=== PATIENT | female | born 1985 | race African-American/Black ===

== ENCOUNTER 2019-09-13 09:18 | Inpatient (IN) ==
[2019-09-13] MEDS ORDERED: FAMOTIDINE 20 MG/2 ML VIAL IV ONE (10:29)
[2019-09-13] MEDS ORDERED: ceFAZolin 2,000 MG in PREMIX 1 EACH IV ONE (10:29)
[2019-09-13] MEDS ORDERED: CITRIC ACID/SODIUM CITRATE 30 ML UDCUP PO ONE (10:29)
[2019-09-13] MEDS ORDERED: LACTATED RINGERS 1,000 ML IV ONE (10:33)
[2019-09-13 11:06] LABS: Basophils % 0.2 % (0.0-0.8); Eosinophils % 0.3 % (0.00-10.9); Hematocrit 38.3 VOL% (35.7-47.0); Hemoglobin 12.7 GM/DL (12.0-16.0); Immature Granulocytes % 0.7 %; Immature Granulocytes Absolute 0.06 #; Lymphocytes # 2.1 10*3/uL (1.4-4.0); Lymphocytes % 23.8 % (21.3-54.2); Mean Corpuscular HGB Conc 33.2 GM/DL (32-36); Mean Corpuscular Volume 91.8 FL (87-102); Monocytes % 9.9 % (1.7-12.7); Neutrophils % 65.1 % (38.7-73.9); Platelet Count 119 T/CUMM (130-400); Red Blood Count 4.17 MC/CUMM (3.8-5.5); White Blood Count 8.8 T/CUMM (4-12)
[2019-09-13 11:24] LABS: Apearance,Urine CLEAR (Clear); Bilirubin,Urine Negative (Negative); Blood, Urine Negative (Negative); Glucose,Urine (UA) Negative (Negative); Ketones,Urine 5 mg/dL (Negative); Mucus,Urine Moderate /LPF (Occasional); Nitrite,Urine Negative (Negative); Protein,Urine Negative; RBC,Urine 3 /HPF (0-4); Squamous Epithelial Cell,Urine Occasional /HPF (0-10); Urine Color Yellow (Yellow); Urine Specific Gravity 1.016 (1.001-1.035); Urine Urobilinogen < 2.0 EU/DL (0.2-1.0); WBC,Urine 1 /HPF (0-6)
[2019-09-13] MEDS ORDERED: OXYTOCIN/LR 20 UNIT/1,000 ML BAG IV ONE ×3 (12:59→18:10)
[2019-09-13] MEDS ORDERED: BUPIVACAINE SPINAL 0.75% 2 ML AMP SPINAL ONE (13:14)
[2019-09-13] MEDS ORDERED: PHENYLEPHRINE 1 MG/10 ML SYRINGE IV ONE (13:14)
[2019-09-13] MEDS ORDERED: ONDANSETRON 4 MG/2 ML VIAL ONE (13:14)
[2019-09-13] MEDS ORDERED: DEXAMETHASONE 4 MG/1 ML VIAL ONE (13:14)
[2019-09-13] MEDS ORDERED: MORPHINE 10 MG/10 ML VIAL ONE (13:14)
[2019-09-13] MEDS ORDERED: ROPIVACAINE 0.5% 30 ML VIAL ONE (13:14)
[2019-09-13] MEDS ORDERED: hydrOXYzine HCL 25 MG/1 ML VIAL IM PRN (16:48)
[2019-09-13] MEDS ORDERED: HYDROmorphone 2 MG/1 ML VIAL IV PRN (16:48)
[2019-09-13] MEDS ORDERED: ONDANSETRON 4 MG/2 ML VIAL IV PRN (16:48)
[2019-09-13] MEDS ORDERED: diphenhydrAMINE 50 MG/1 ML VIAL IV PRN (16:48)
[2019-09-13] MEDS ORDERED: WITCH HAZEL PADS 100/JAR TOP PRN (18:10)
[2019-09-13] MEDS ORDERED: BISACODYL 10 MG SUPP RECTAL PRN (18:10)
[2019-09-13] MEDS ORDERED: DIPH/TET/ACEL PERT BOOSTER VACCINE 0.5 ML VIAL IM ONE (18:10)
[2019-09-13] MEDS ORDERED: BENZOCAINE 20%/MENTHOL 0.5% SPRAY 56 GM CAN TOP PRN (18:10)
[2019-09-13] MEDS ORDERED: LANOLIN 50% CREAM 0.3 OZ TUBE TOP PRN (18:10)
[2019-09-13] MEDS ORDERED: MEASLES/MUMPS/RUBELLA VACCINE 0.5 ML VIAL SUBCUT ONE (18:10)
[2019-09-13] MEDS ORDERED: ACETAMINOPHEN 325 MG TABLET PO PRN (18:10)
[2019-09-13] MEDS ORDERED: RHO(D) IMMUNE GLOBULIN 300 MCG SYRINGE IM ONE (18:10)
[2019-09-13] MEDS ORDERED: HYDROCORTISONE 2.5% RECTAL CREAM 30 GM TUBE TOP PRN (18:10)
[2019-09-13] MEDS ORDERED: oxyCODONE/ACETAMINOPHEN 5-325 MG TABLET PO PRN ×2 (18:10)
[2019-09-13] MEDS: DOCUSATE SODIUM 100 MG CAPSULE PO SCH (20:37)
[2019-09-13] MEDS ORDERED: PROMETHAZINE 25 MG/1 ML VIAL IM PRN (20:49)
[2019-09-13] MEDS: ceFAZolin 1,000 MG in SYRINGE 1 EACH IV SCH (22:35)
[2019-09-14] MEDS: LACTATED RINGERS 1,000 ML IV SCH ×2 (02:00→02:01)
[2019-09-14] MEDS: ceFAZolin 1,000 MG in SYRINGE 1 EACH IV SCH (05:58)
[2019-09-14] MEDS ORDERED: diphenhydrAMINE CAP 25 MG CAPSULE PO PRN (06:16)
[2019-09-14 06:20] LABS: Basophils % 0.2 % (0.0-0.8); Hemoglobin 11.1 GM/DL (12.0-16.0); Immature Granulocytes % 0.4 %; Immature Granulocytes Absolute 0.06 #; Lymphocytes # 1.5 10*3/uL (1.4-4.0); Lymphocytes % 9.1 % (21.3-54.2); Mean Corpuscular HGB Conc 32.6 GM/DL (32-36); Mean Corpuscular Volume 92.4 FL (87-102); Mean Platelet Volume 12.9 FL (9.6-12.0); Neutrophils % 82.3 % (38.7-73.9); Platelet Count 122 T/CUMM (130-400); Red Blood Count 3.68 MC/CUMM (3.8-5.5); Red Cell Distribution Width 13.7 % (9.3-17.3); White Blood Count 16.7 T/CUMM (4-12)
[2019-09-14] MEDS ORDERED: diphenhydrAMINE CAP 50 MG CAPSULE ONE (08:12)
[2019-09-14] MEDS: DOCUSATE SODIUM 100 MG CAPSULE PO SCH ×2 (08:18→20:45)
[2019-09-14] MEDS: diphenhydrAMINE CAP 50 MG CAPSULE PO PRN ×2 (08:18→15:43)
[2019-09-14] MEDS: IBUPROFEN 800 MG TABLET PO PRN ×2 (08:19→15:44)
[2019-09-14] MEDS: MAGNESIUM HYDROXIDE SUSP 30 ML UDCUP PO PRN ×2 (09:30→20:45)
[2019-09-15] MEDS ORDERED: MAGNESIUM CITRATE 300 ML BOTTLE PO ONE (07:58)
[2019-09-15] MEDS ORDERED: PANTOPRAZOLE 40 MG TABLET PO ONE (08:04)
[2019-09-15] MEDS: IBUPROFEN 800 MG TABLET PO PRN (08:11)
[2019-09-15] MEDS: DOCUSATE SODIUM 100 MG CAPSULE PO SCH (08:11)
[2019-09-15] MEDS: PANTOPRAZOLE 40 MG TABLET PO SCH (08:11)
[2019-09-15] MEDS ORDERED: PANTOPRAZOLE 20 MG TABLET PO SCH (09:00)
[2019-09-15 18:41] LABS: Basophils % 0.2 % (0.0-0.8); Eosinophils # 0.1 10*3/uL (0.0-0.87); Eosinophils % 0.6 % (0.00-10.9); Hematocrit 33.9 VOL% (35.7-47.0); Immature Granulocytes % 0.5 %; Immature Granulocytes Absolute 0.06 #; Lymphocytes # 2.6 10*3/uL (1.4-4.0); Mean Corpuscular HGB Conc 32.4 GM/DL (32-36); Mean Corpuscular Volume 94.2 FL (87-102); Mean Platelet Volume 12.6 FL (9.6-12.0); Monocytes % 8.8 % (1.7-12.7); Neutrophils % 69.9 % (38.7-73.9); Platelet Count 126 T/CUMM (130-400); Red Cell Distribution Width 14.3 % (9.3-17.3); White Blood Count 13.2 T/CUMM (4-12)
[2019-09-16] MEDS: DOCUSATE SODIUM 100 MG CAPSULE PO SCH ×2 (01:46→12:43)
[2019-09-16] MEDS: IBUPROFEN 800 MG TABLET PO PRN (03:44)
[2019-09-16 07:11] VITALS: BP 118/73
[2019-09-16] MEDS: PANTOPRAZOLE 40 MG TABLET PO SCH (12:43)
== END 2019-09-16 09:45 | disposition home or self-care (01) | DRG 785 ==
LOC: N.LDOUT 09:18 → N.LD 09:21 → N.OB 18:07
PROVIDERS: ADMIT Obstetrics & Gynecology; ATTEND Obstetrics & Gynecology